=== PATIENT | female | born 1990 | race Caucasian/White ===

== ENCOUNTER 2019-04-02 17:01 | Emergency (ER) | payer BC ==
[~2019-04-02] VITALS: Ht 162.6 cm; Wt 79.4 kg
--- OUTSIDE RECORDS SUMMARY | 2019-04-02 17:04 | XMS REPORT ---
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 Allergies, Adverse Reactions, Alerts Allergy Name Allergy Type Status Severity Reaction(s) Onset Date Inactive Date Treating Clinician Comments No Known Allergies DA Active U 2019-02-23 00:00:00 Medications This patient has no known medications. Encounters Start Date/Time End Date/Time Encounter Type Admission Type Attending Clinicians Care Facility Care Department Encounter ID 2018-03-07 20:25:00 2018-03-07 20:25:00 Emergency [facility] [id number] Results Test Description Test Time Test Comments Text Results Atomic Results Result Comments - CT ABD PELVIS W/CONT 2019-02-23 10:06:00 Patient Name: ANOOP TRINH Unit No: [id number] EXAMS: CPT CODE: [id number] CT ABD PELVIS W/CONT 70558 HISTORY: Abdominal pain. CT abdomen and pelvis, contrast enhanced. Reformatted sagittal and coronal images. COMPARISON: None Automated exposure control, iterative reconstruction technique, and/or adjustment of mA and/or kV according to patient's size was utilized for optimum radiation dose reduction. Following the intravenous administration of 75 mL of Isovue 300 but no oral contrast, a study of the abdomen and pelvis was performed. The study includes some of the lung bases, which appear to be clear. No pericardial or pleural fluid can be found. The liver and the spleen appear to be uniformly perfused with normal size suggested. Gallbladder intact. The kidneys do not show obstruction, stones or stranding. Adrenals are intact. Pancreas normal in its outline and density. Normal aortic diameter and perfusion. Bowel loops do not show evidence of obstruction. Large bowel with borderline constipation changes. No fluid accumulation. The study of the pelvis shows the bladder normally distended. Rim-enhancing right renal cyst, follicular type II cm in diameter. Left ovary intact. Tiny amount of free fluid in the cul-de-sac likely physiologic. No evidence of inguinal hernia or adenopathy. No bony destructive or sclerotic abnormality diffusely. There is a small 1.2 cm right iliac bone lucency with a central density not having aggressive or expansile characteristics, likely benign. Reformatted images do not show any acute bowel loop abnormality or free fluid or free air. Appendix not identified but no cecal edema seen. IMPRESSION: No acute abnormality in the abdomen or pelvis. Mild constipation. Bowel loop pattern intact, otherwise. Location: [facility] Reported and signed by: Jabier Villalta MD [facility] [place] NAME: ANOOP TRINH [address] [place] [address] PHYS: [place] [address] : 1990 AGE: 28 SEX: F LOC: [facility] PHONE #: [phone] EXAM DATE: 02/23/2019 STATUS: REG ER FAX #: [phone] RAD #: D/C DT PAGE 1 Signed Report (CONTINUED) Patient Name: ANOOP TRINH Unit No: [id number] EXAMS: CPT CODE: [id number] CT ABD PELVIS W/CONT 64345 <Continued> CC: Omi Bermudez NP Dictated Date/Time: 02/23/2019 (1006) Technologist: Candice Brownlee CTDI: 11.85 DLP: 614.70 Trnscrpt: 02/23/2019 (1006) Hilaria [facility] [place] NAME: GAYATHRI[address] PHYS: [place] [address] : 1990 AGE: 28 SEX: F LOC: [place] PHONE #: [phone] EXAM DATE: 02/23/2019 STATUS: REG ER FAX #: [phone] RAD #: D/C DT PAGE 2 Signed Report Patient Name: ANOOP TRINH Unit No: [id number] EXAMS: CPT CODE: [id number] CT ABD PELVIS W/CONT 35301 <Continued> Orig Print D/T: S: 02/23/2019 (1009) YADI [place] NAME: ANOOP TRINH [address] [place] [address] PHYS: Omi Morris NP [place], [place] [address] : 1990 AGE: 28 SEX: F LOC: [facility] PHONE #: [phone] EXAM DATE: 02/23/2019 STATUS: REG ER FAX #: [phone] RAD #: D/C DT PAGE 3 Signed Report URINALYSIS COMPLETE 2019-02-23 08:52:00 UA COLOR (test code=COLU) YELLOW DESCRIPT YELLOW UA APPEARANCE (test code=APPU) HAZY DESCRIPT CLEAR UA GLUCOSE DIPSTICK (test code=DGLUU) NEGATIVE (0) mg/dL (NEG) 0 UA BILIRUBIN DIPSTICK (test code=BILU) NEGATIVE (0) mg/dL (NEG) 0 UA KETONE DIPSTICK (test code=KETU) 0 (NEG) mg/dL (NEG) 0 UA SPECIFIC GRAVITY (test code=SGU) 1.018 SG 1.001-1.035 UA BLOOD DIPSTICK (test code=TALA) NEGATIVE (0) mg/DL (NEG) 0 UA PH DIPSTICK (test code=AGAPITO) 6.0 pH UNITS 4.6-8.0 UA PROTEIN DIPSTICK (test code=PROU) NEGATIVE (0) mg/dL <30 (1+) UA UROBILINIOGEN DIPSTICK (test code=URO) 0 (NORM) mg/dL (NORM) <2.0 UA NITRITE DIPSTICK (test code=IFRAH) NEGATIVE (0) SCREEN NEG UA LEUKOCYTE ESTERASE DIPSTICK (test code=LEUU) 25(TR) Leuk/mcL (NEG) 0 UA WBC (test code=WBCU) 0-3 #WBC/HPF 0-3 UA RBC (test code=RBCU) 0-3 #RBC/HPF 0-3 UA SQUAMOUS CELLS (test code=SQU) FEW >2 /HPF NONE-SQepi UA MUCUS (test code=MUCU) RARE /LPF NONE UR HCG [id number] 08:52:00* Test Item Value Reference Range Comments UR HCG QUAL (test code=HCGQLU) NEGATIVE NEG Very dilute urines with a low specific gravity may notcontain professional healthcare representative levels of hCG. COMPREHENSIVE METABOLIC [id number] 08:45:00* Test Item Value Reference Range Comments SODIUM (test code=NA) 140.0 mmol/L 133-144 POTASSIUM (test code=K) 3.5 mmol/L 3.5-5.1 CHLORIDE (test code=CL) 106 mmol/L 95-105 CARBON DIOXIDE (test code=CO2) 28 mmol/L 21-32 ANION GAP (test code=GAP) 6.0 GAP calc 4.0-15.0 GLUCOSE (test code=GLU) 103 MG/DL 70-110 BLOOD UREA NITROGEN (test code=BUN) 13 MG/DL 7-18 GLOMERULAR FILTRATION RATE (test code=GFR) 85 estGFR >60 The estimated glomerular filtration rate is computed usingpatient race, age, sex, and serum creatinine. If any of theneeded data elements are missing the Laboratory can notcompute an estimation of the glomerular filtration rate.The GFR value units=ml/min/1.73 meter squared. EstimatedGFR values above 60 should be interpreted as >60, not anexact number.--- DRUG DOSAGE ALERT --- Drug dosage adjustments utilize different calculationparameters. CREATININE (test code=CREAT) 0.80 MG/DL 0.55-1.30 Results may be depressed if patient is takingN-Acetylcysteine (NAC) and Metamizole (Dipyrone). TOTAL PROTEIN (test code=PROT) 6.8 G/DL 6.4-8.2 ALBUMIN (test code=ALB) 3.8 G/DL 3.4-5.0 ALBUMIN/GLOBULIN RATIO (test code=A/G) 1.3 RATIO 1.2-2.2 CALCIUM (test code=CA) 8.6 MG/DL 8.5-10.1 BILIRUBIN TOTAL (test code=BILT) 0.26 MG/DL 0.00-1.00 BILIRUBIN DIRECT (test code=BILD) < 0.10 MG/DL 0.00-0.30 BILIRUBIN INDIRECT (test code=BILIND) 0.26 MG/DL 0.2-1.3 SGOT/AST (test code=AST) 12 Unit/L 15-37 SGPT/ALT (test code=ALT) 19 Unit/L 12-78 ALKALINE PHOSPHATASE TOTAL (test code=ALKP) 78 Unit/L 45-117 INDEX HEMOLYSIS (test code=HEMINDEX) 1 NORMAL <10 MG Index/DL 1 NORMAL INDEX ICTERIC (test code=ICTINDEX) 1 NORMAL <2 MG Index/DL 1 NORMAL INDEX LIPEMIA (test code=LIPINDEX) 1 NORMAL <50 MG Index/DL 1 NORMAL [id number] 08:45:00* Test Item Value Reference Range Comments LIPASE (test code=LIP) 131 Unit/L 114-286 URINALYSIS [id number] 08:43:00* Test Item Value Reference Range Comments UA COLOR (test code=COLU) YELLOW DESCRIPT YELLOW UA APPEARANCE (test code=APPU) HAZY DESCRIPT CLEAR UA GLUCOSE DIPSTICK (test code=DGLUU) NEGATIVE (0) mg/dL (NEG) 0 UA BILIRUBIN DIPSTICK (test code=BILU) NEGATIVE (0) mg/dL (NEG) 0 UA KETONE DIPSTICK (test code=KETU) 0 (NEG) mg/dL (NEG) 0 UA SPECIFIC GRAVITY (test code=SGU) 1.018 SG 1.001-1.035 UA BLOOD DIPSTICK (test code=TALA) NEGATIVE (0) mg/DL (NEG) 0 UA PH DIPSTICK (test code=AGAPITO) 6.0 pH UNITS 4.6-8.0 UA PROTEIN DIPSTICK (test code=PROU) NEGATIVE (0) mg/dL <30 (1+) UA UROBILINIOGEN DIPSTICK (test code=URO) 0 (NORM) mg/dL (NORM) <2.0 UA NITRITE DIPSTICK (test code=IFRAH) NEGATIVE (0) SCREEN NEG UA LEUKOCYTE ESTERASE DIPSTICK (test code=LEUU) 25(TR) Leuk/mcL (NEG) 0 UA RBC (test code=RBCU) #RBC/HPF 0-3 UR HCG [id number] 08:43:00* Test Item Value Reference Range Comments UR HCG QUAL (test code=HCGQLU) NEGATIVE NEG Very dilute urines with a low specific gravity may notcontain professional healthcare representative levels of hCG. URINALYSIS [id number] 08:42:00* Test Item Value Reference Range Comments UA COLOR (test code=COLU) DESCRIPT YELLOW UA APPEARANCE (test code=APPU) DESCRIPT CLEAR UA GLUCOSE DIPSTICK (test code=DGLUU) mg/dL (NEG) 0 UA BILIRUBIN DIPSTICK (test code=BILU) mg/dL (NEG) 0 UA KETONE DIPSTICK (test code=KETU) mg/dL (NEG) 0 UA SPECIFIC GRAVITY (test code=SGU) SG 1.001-1.035 UA BLOOD DIPSTICK (test code=TALA) mg/DL (NEG) 0 UA PH DIPSTICK (test code=AGAPITO) pH UNITS 4.6-8.0 UA PROTEIN DIPSTICK (test code=PROU) mg/dL <30 (1+) UA UROBILINIOGEN DIPSTICK (test code=URO) mg/Dl <2.0 (1+) UA NITRITE DIPSTICK (test code=IFRAH) SCREEN NEG UA LEUKOCYTE ESTERASE DIPSTICK (test code=LEUU) Leuk/mcL (NEG) 0 UA RBC (test code=RBCU) #RBC/HPF 0-3 UR HCG [id number] 08:42:00* Test Item Value Reference Range Comments UR HCG QUAL (test code=HCGQLU) NEGATIVE NEG Very dilute urines with a low specific gravity may notcontain professional healthcare representative levels of hCG. CBC W/AUTO [id number] 08:34:00* Test Item Value Reference Range Comments WHITE BLOOD CELL (test code=WBC) 11.3 K/mm3 4.1-12.1 RED BLOOD CELL (test code=RBC) 4.33 M/mm3 3.8-5.5 HEMOGLOBIN (test code=HGB) 13.1 G/DL 10.6-15.8 HEMATOCRIT (test code=HCT) 39.4 % 31.8-47.4 MEAN CELL VOLUME (test code=MCV) 91.0 fL 80.1-101.1 MEAN CELL HGB (test code=MCH) 30.3 pg 25.3-35.3 MEAN CELL HGB CONCETRATION (test code=MCHC) 33.2 G/DL 32.7-35.1 RED CELL DISTRIBUTION WIDTH (test code=RDW) 12.5 % 12.2-16.4 RED CELL DISTRIBUTION WIDTH (test code=RDW-SD) 41.3 fL 36.4-46.3 PLATELET COUNT (test code=PLT) 268 K/mm3 155-337 MEAN PLATELET VOLUME (test code=MPV) 9.5 fL 6.8-11.2 GRANULOCYTE % (test code=GR%) 49.4 % 37.8-82.6 IMMATURE GRANULOCYTE % (test code=IG%) 0.4 % 0.0-2.0 LYMPHOCYTE % (test code=LY%) 35.6 % 14.1-45.4 MONOCYTE % (test code=MO%) 6.9 % 2.5-11.7 EOSINOPHIL % (test code=EO%) 7.3 % 0.0-6.2 BASOPHIL % (test code=BA%) 0.4 % 0.0-2.1 NUCLEATED RBC % (test code=NRBC%) 0.0 /100WBC% 0.0-1.0 GRANULOCYTE # (test code=GR#) 5.57 k/mm3 2.0-13.7 IMMATURE GRANULOCYTE # (test code=IG#) 0.04 K/mm3 0.00-0.03 LYMPHOCYTE # (test code=LY#) 4.02 K/mm3 0.6-3.8 MONOCYTE # (test code=MO#) 0.78 K/mm3 0.11-0.59 EOSINOPHIL # (test code=EO#) 0.82 K/mm3 0.0-0.4 BASOPHIL # (test code=BA#) 0.05 K/mm3 0.0-0.1 NUCLEATED RBC # (test code=NRBC#) 0.00 K/mm3 0.0-0.05
--- NOTE | 2019-04-02 18:00 | Diagnostic Imaging Report ---
SHOULDER 2+VW LT -HOPD - 3 views HISTORY: Fall, left arm injury COMPARISON: None available. FINDINGS: Bones: No fracture. The alignment is normal. Joints: The joint spaces are well-maintained. Soft tissues: Normal. IMPRESSION: No acute radiographic abnormality. Signed by: Kemar Ozuna MD on 04/02/2019 5:56 PM
--- NOTE | 2019-04-02 18:02 | Diagnostic Imaging Report ---
ELBOW 3 VIEW LT - HOPD - 3 views HISTORY: Pain COMPARISON: None available. FINDINGS: Bones: No fracture. The alignment is normal. Joints: The joint spaces are well-maintained. Soft tissues: Soft tissue swelling around the upper arm. IMPRESSION: Soft tissue swelling around the upper arm without underlying osseous abnormality. Signed by: Kemar Ozuna MD on 04/02/2019 5:58 PM
[2019-04-02 18:43] VITALS: BP 156/62
== END 2019-04-02 18:46 | disposition home or self-care (01) ==
LOC: FSED 17:01
DX: S50.02XA Contusion of left elbow, initial encounter (principal); S40.012A Contusion of left shoulder, initial encounter; W17.89XA Other fall from one level to another, initial encounter; Y92.002 Bathroom of unspecified non-institutional (private) residence as the place of occurrence of the external cause; F17.210 Nicotine dependence, cigarettes, uncomplicated
CPT/HCPCS: 99283